=== PATIENT | female | born 1975 | race Caucasian/White ===

== ENCOUNTER 2022-11-17 23:37 | Emergency (ER) | payer MEDICAID ==
[~2022-11-17] VITALS: Ht 170.2 cm; Wt 82.0 kg
[2022-11-17 23:42] VITALS: BP 147/98; PULSE 74; RESP 18; O2SAT 99
[2022-11-18] MEDS ORDERED: proCHLORperazine 10 MG/2 ml inj IM ONE (02:00)
[2022-11-18] MEDS ORDERED: ketorolac trometh inj. 60 MG/2 ML VIAL IM ONE (02:00)
[2022-11-18] MEDS ORDERED: acetaminophen 325mg tablet PO ONE (02:00)
[2022-11-18 04:00] VITALS: TEMP 98
== END 2022-11-18 04:06 | disposition home or self-care (01) ==
LOC: ER 23:38
DX: G43.909 Migraine, unspecified, not intractable, without status migrainosus (principal); Z88.8 Allergy status to other drugs, medicaments and biological substances
CPT/HCPCS: 96372; 99284; J0780; J1885

== ENCOUNTER 2023-11-20 10:06 | Emergency (ER) | payer MEDICAID ==
[~2023-11-20] VITALS: Ht 167.6 cm; Wt 84.1 kg
[2023-11-20 10:16] VITALS: TEMP 97.8
[2023-11-20 10:26] LABS: BASOPHILS # (AUTO) 0.1 X10'3 (0-0.2); BASOPHILS % (AUTO) 0.9 % (0-1); EOSINOPHILS # (AUTO) 0.1 X10'3 (0-0.9); HEMATOCRIT 40.9 % (35.0-45.0); HEMOGLOBIN 13.7 g/dl (12.0-16.0); LYMPHOCYTES % (AUTO) 27.9 % (21-51); MEAN CORPUSCULAR HEMOGLOBIN 29.7 PG (27.0-31.0); MEAN CORPUSCULAR HGB CONC 33.4 g/dL (33.0-36.5); MEAN CORPUSCULAR VOLUME 88.9 FL (78-98); MEAN PLATELET VOLUME 6.9 FL (7.4-10.4); MONOCYTES # (AUTO) 0.5 X10'3 (0-0.9); MONOCYTES % (AUTO) 7.4 % (2-12); NEUTROPHILS # (AUTO) 4.5 X10'3 (1.8-7.7); NEUTROPHILS % (AUTO) 61.8 % (42-75); PLATELET COUNT 329 X10'3 (140-440); RED CELL DISTRIBUTION WIDTH 13.1 % (11.5-14.5); WHITE BLOOD COUNT 7.3 X10'3 (4.5-11.0)
[2023-11-20] MEDS: aspirin 81mg tab.chew PO ONE (10:34)
[2023-11-20 10:41] LABS: ALANINE AMINOTRANSFERASE 20 U/L (12-78); ALBUMIN 3.7 G/DL (3.4-5.0); ALKALINE PHOSPHATASE 72 IU/L (46-116); ANION GAP 8 (8-16); ASPARTATE AMINO TRANSFERASE 14 U/L (10-37); BILIRUBIN,TOTAL 0.5 MG/DL (0.1-1.0); BLOOD UREA NITROGEN 11 MG/DL (7-18); BUN/CREATININE RATIO 11.6 (10.0-20.0); CALCIUM 8.9 MG/DL (8.5-10.1); CHLORIDE 101 MMOL/L (99-107); CREATININE 0.95 MG/DL (0.40-0.90); GLUCOSE 98 MG/DL (70-104); POTASSIUM 3.6 MMOL/L (3.5-5.1); SODIUM 136 MMOL/L (135-145); TOTAL CARBON DIOXIDE 27.4 MMOL/L (24-32); TOTAL PROTEIN 7.3 G/DL (6.4-8.2); eCRCL 66 ML/MIN; eGFR 62 ML/MIN
[2023-11-20 10:47] LABS: PRO BRAIN NATRIURETIC PEPTIDE < 30 PG/ML (0-125)
[2023-11-20 11:27] VITALS: BP 112/73; PULSE 63; RESP 16; O2SAT 97
== END 2023-11-20 13:00 | disposition home or self-care (01) ==
LOC: ER 10:07
DX: R07.89 Other chest pain (principal); Z88.5 Allergy status to narcotic agent
CPT/HCPCS: 36415; 71045; 80053; 83880; 84484; 85025; 93005; 99285

== ENCOUNTER 2025-03-23 15:31 | Emergency (ER) | payer MEDICAID ==
[~2025-03-23] VITALS: Ht 170.2 cm; Wt 100.0 kg
[2025-03-23 15:35] VITALS: BP 112/89; TEMP 98.6
[2025-03-23] MEDS: ketorolac trometh 30MG/ML vial 30 MG/ML VIAL IM ONE (17:25)
--- NOTE | 2025-03-23 17:34 | Physician Documentation ---
History of Present Illness ~ Chief Complaint: Back Pain Stated Complaint: BACK PAIN Time Seen by MD: 16:54 Primary Medical Doctor: NONE HPI 49-year-old female presents to the ED with a complaint of lumbosacral pain after recently moving to another location. She states prior to that she lumbosacral strain which he thought fully healed.. Since since recently moving she has had sciatica and severe lumbar pain. Denies any incontinence or any other red flag symptoms Day of Onset: Mar 23, 2025 Medication Reconciliation Allergies: Coded Allergies: hydrocodone (Verified Allergy, Unknown, profuse vomiting, 03/23/25) Scheduled Cyclobenzaprine HCl (Cyclobenzaprine HCl), 1 TAB PO Q8H Gabapentin (Gabapentin), 1 CAP PO TID Naproxen (Naproxen), 1 TAB PO Q12H Review of Systems All Other Systems at this time: Reviewed and Negative ROS As stated above in the HPI, otherwise all systems are reviewed and negative. Physical Exam Physical Exam Vital Signs: Temperature: 98.6, Source: Temporal, Heart Rate: 117, Respiratory Rate: 12, BP: 112/89, Pulse Oximetry: 97, Weight: 100.000 Oxygen Flow Rate: 0 Physical Exam General: Alert, no apparent distress. Respiratory: Lungs clear, no respiratory distress. . Cardiovascular: Regular rate and rhythm, no murmurs. Gastrointestinal: Soft, nontender, nondistended. Bowels sounds present. back: lumbosacral pain via palpation Neurologic: Oriented x4. Psychiatric: Normal mood and affect. Skin: Normal color, warm and dry. No edema, no ecchymosis. Progress Results/Orders Results/Orders Completed Orders - ADRIAN BELLO NP Ketorolac Trometh 30mg/Ml Vial (Toradol (03/23/25 17:00) Cyclobenzaprine Tablet (Flexeril Tablet) (03/23/25 17:00) Medications Received in ER Medications (Trade) Dose Ordered Sig/Deric Route PRN Reason Start Time Stop Time Status Last Admin Dose Admin (Toradol inj. 30mg/ml) 30 mg ONCE ONCE IM 03/23/25 17:00 03/23/25 17:01 DC 03/23/25 17:25 30 MG (Flexeril tablet) 10 mg ONCE ONCE PO 03/23/25 17:00 03/23/25 17:01 DC 03/23/25 17:25 10 MG Vital Signs 03/23/25 03/23/25 03/23/25 15:35 17:25 18:15 Temp 98.6 Pulse 117 87 Resp 12 19 13 B/P (MAP) 112/89 Pulse Ox 97 98 O2 Flow Rate 0 Medical Decision Making Additional information obtaine: old records Findings 79-year-old female was treated for lumbar pain via pain medications rated I advise her that she would likely will require physical therapy and/or potentially an MRI to fully recover. Not present any red flag symptoms or any concerning signs that would precipitate the need for a CT. Differential Dx:Considerations: Bowel obstruction, Musculoskeletal pain Departure Disposition: HOME / SELF CARE / HOMELESS Impression: Primary Impression: Strain of lumbar region Condition: Stable Discharge Instructions: Lumbosacral Strain Referrals: NO PRIMARY CARE PROVIDER (PCP) Prescriptions Gabapentin (Gabapentin) 400 Mg Capsule 1 CAP PO TID for back for 30 Days, #90 CAP 0 Refills Prov: ADRIAN BELLO NP 03/23/25 Naproxen (Naproxen) 500 Mg Tablet 1 TAB PO Q12H, #20 TAB Prov: ADRIAN BELLO NP 03/23/25 Cyclobenzaprine HCl (Cyclobenzaprine HCl) 10 Mg Tablet 1 TAB PO Q8H for muscle spasms for 10 Days, #30 TAB Prov: ADRIAN BELLO NP 03/23/25 Education Educated: Patient Educated regarding: diagnosis Signature Scribe Signature: u Attestation: Scribed for Adrian Bello Np by Adrian Cabrera NP . 03/23/25 17:42 ADRIAN BELLO NP Mar 23, 2025 17:34
[2025-03-23] MEDS ORDERED: GABA-535 PO (17:42)
[2025-03-23] MEDS ORDERED: CYCL-394 PO (17:42)
[2025-03-23] MEDS ORDERED: NAPR-56 PO (17:42)
[2025-03-23 18:15] VITALS: PULSE 87; RESP 13; O2SAT 98
== END 2025-03-23 18:19 | disposition home or self-care (01) ==
LOC: ER 15:31
DX: S39.012A Strain of muscle, fascia and tendon of lower back, initial encounter (principal); Z88.5 Allergy status to narcotic agent; Z79.899 Other long term (current) drug therapy; X58.XXXA Exposure to other specified factors, initial encounter; Y93.89 Activity, other specified; Y92.89 Other specified places as the place of occurrence of the external cause; Y99.8 Other external cause status
CPT/HCPCS: 96372; 99283; J1885